=== PATIENT | female | born 1950 | race Caucasian/White ===

== ENCOUNTER 2017-07-05 04:03 | Emergency (ER) | payer MEDICARE, MEDICAID ==
[~2017-07-05] VITALS: Ht 165.1 cm; Wt 90.4 kg
[2017-07-05 04:53] VITALS: BP 122/64
[2017-07-05] MEDS ORDERED: HYDROcodone/APAP 5/325 TABLET ONE (05:09)
[2017-07-05] MEDS ORDERED: HYDROcodone/APAP 5/325 TABLET PO ONE (05:30)
== END 2017-07-05 05:31 | disposition home or self-care (01) ==
LOC: ED 05:25
DX: Z76.0 Encounter for issue of repeat prescription (principal); K04.7 Periapical abscess without sinus
CPT/HCPCS: 99283

== ENCOUNTER 2018-05-09 15:58 | Emergency (ER) | payer MEDICARE, MEDICAID ==
[~2018-05-09] VITALS: Ht 165.1 cm; Wt 90.9 kg
[2018-05-09] MEDS ORDERED: SODIUM CHLORIDE FLUSH 10ML SYR IVF ONE ×2 (17:00→19:00)
[2018-05-09 17:27] LABS: CULTURE INDICATED? YES; MICROSCOPIC INDICATED
[2018-05-09 17:48] LABS: BASOPHILS # (AUTO) 0.02 x10^3/uL (0-0.1); BASOPHILS % (AUTO) 0 % (0-1); EOSINOPHILS # (AUTO) 0.16 x10^3/uL (0-0.4); EOSINOPHILS % (AUTO) 2 % (1-7); LYMPHOCYTES # (AUTO) 2.15 x10^3/uL (1-3.4); LYMPHOCYTES % (AUTO) 21 % (22-44); MD NO; MEAN CORPUSCULAR HEMOGLOBIN 30.5 pg (27.0-34.8); MEAN CORPUSCULAR HGB CONC 33.5 g/dL (32.4-35.8); MEAN CORPUSCULAR VOLUME 91.2 fL (80-100); MEAN PLATELET VOLUME 8.6 fL (7.4-10.4); MONOCYTES # (AUTO) 0.56 x10^3/uL (0.2-0.8); MONOCYTES % (AUTO) 6 % (2-9); NEUTROPHILS # (AUTO) 7.27 x10^3/uL (1.8-6.8); NEUTROPHILS % (AUTO) 72 % (42-75); PLATELET COUNT 373 x10^3/uL (130-400); RED BLOOD COUNT 4.98 x10^6/uL (3.82-5.3); RED CELL DISTRIBUTION WIDTH 13.6 % (9.6-15.2)
[2018-05-09 17:59] LABS: ALANINE AMINOTRANSFERASE 27 U/L (12-78); ALBUMIN 3.9 g/dL (3.4-5.0); ANION GAP 5 mmol/L (5-15); CALCIUM 9.2 mg/dL (8.5-10.1); CHLORIDE 105 mmol/L (98-107); CREATININE 0.96 mg/dL (0.55-1.02)
[2018-05-09 18:07] LABS: ALKALINE PHOSPHATASE 94 U/L (45-117); BILIRUBIN,TOTAL 0.3 mg/dL (0.2-1.0); TOTAL PROTEIN 7.9 g/dL (6.4-8.2)
[2018-05-09] MEDS ORDERED: OMNIPAQUE 350 MG/ML, 100ML BOTTLE ONE (19:00)
[2018-05-09] MEDS ORDERED: CEFDINIR 300 MG CAPSULE PO ONE (19:00)
[2018-05-09] MEDS ORDERED: CEFDINIR 300 MG CAPSULE ONE (19:36)
[2018-05-09 20:13] VITALS: BP 151/70
== END 2018-05-09 20:59 | disposition home or self-care (01) ==
LOC: ED 20:12
DX: R60.0 Localized edema (principal); R33.9 Retention of urine, unspecified
CPT/HCPCS: 36415; 51702; 71046; 74177; 80053; 81001; 83880; 85025; 87086; 93005; 93970; 99285; Q9967

== ENCOUNTER 2018-05-11 18:53 | Emergency (ER) | payer MEDICARE, MEDICAID ==
[~2018-05-11] VITALS: Ht 152.4 cm; Wt 89.1 kg
[2018-05-11 19:24] VITALS: BP 148/80
== END 2018-05-11 20:28 | disposition home or self-care (01) ==
LOC: ED 19:44
DX: R31.0 Gross hematuria (principal); Z88.0 Allergy status to penicillin
CPT/HCPCS: 99281; 99284

== ENCOUNTER 2018-05-13 17:30 | Emergency (ER) | payer MEDICARE, MEDICAID ==
[~2018-05-13] VITALS: Ht 165.1 cm; Wt 92.5 kg
[2018-05-13 17:41] VITALS: BP 142/84
== END 2018-05-13 20:10 | disposition home or self-care (01) ==
LOC: ED 19:45
DX: R60.0 Localized edema (principal); F41.1 Generalized anxiety disorder; R33.9 Retention of urine, unspecified; R31.0 Gross hematuria; Z90.710 Acquired absence of both cervix and uterus; Z88.0 Allergy status to penicillin; Z88.1 Allergy status to other antibiotic agents; Z88.5 Allergy status to narcotic agent
CPT/HCPCS: 99283

== ENCOUNTER → 2019-03-18 | Outpatient (CLI) | payer MEDICARE, MEDICAID | END | disposition home or self-care (01) | LOC: RAD 16:46 | PROVIDERS: ATTEND Family Medicine | DX: M17.11 Unilateral primary osteoarthritis, right knee (principal); M16.11 Unilateral primary osteoarthritis, right hip ==

== ENCOUNTER 2019-05-15 16:17 | Inpatient (IN) | payer MEDICARE, MEDICAID ==
[~2019-05-15] VITALS: Ht 165.1 cm; Wt 91.0 kg
[2019-05-15] MEDS ORDERED: SODIUM CHLORIDE FLUSH 10ML SYR IVF ONE (16:30)
--- NOTE | 2019-05-15 16:44 | NUR ---
HOME HEALTH AIDE CAREGIVER: PT TO ROOM FROM LOBBY, VIA W/C
[2019-05-15 16:49] LABS: BASOPHILS # (AUTO) 0.01 x10^3/uL (0-0.1); BASOPHILS % (AUTO) 0 % (0-1); EOSINOPHILS # (AUTO) 0.01 x10^3/uL (0-0.4); EOSINOPHILS % (AUTO) 0 % (1-7); LYMPHOCYTES # (AUTO) 0.74 x10^3/uL (1-3.4); LYMPHOCYTES % (AUTO) 6 % (22-44); MD NO; MEAN CORPUSCULAR HEMOGLOBIN 31.3 pg (27.0-34.8); MEAN CORPUSCULAR HGB CONC 34.1 g/dL (32.4-35.8); MEAN CORPUSCULAR VOLUME 91.9 fL (80-100); MEAN PLATELET VOLUME 9.4 fL (7.4-10.4); MONOCYTES # (AUTO) 0.63 x10^3/uL (0.2-0.8); MONOCYTES % (AUTO) 5 % (2-9); NEUTROPHILS # (AUTO) 11.54 x10^3/uL (1.8-6.8); NEUTROPHILS % (AUTO) 89 % (42-75); PLATELET COUNT 250 x10^3/uL (130-400); RED BLOOD COUNT 4.83 x10^6/uL (3.82-5.3); RED CELL DISTRIBUTION WIDTH 13.5 % (9.6-15.2)
[2019-05-15 16:56] LABS: ALANINE AMINOTRANSFERASE 35 U/L (12-78); ANION GAP 4 mmol/L (5-15); CALCIUM 9.3 mg/dL (8.5-10.1); CHLORIDE 104 mmol/L (98-107)
[2019-05-15 16:58] LABS: ALKALINE PHOSPHATASE 75 U/L (45-117); BILIRUBIN,TOTAL 0.8 mg/dL (0.2-1.0); CREATININE 0.86 mg/dL (0.55-1.02); TOTAL PROTEIN 7.5 g/dL (6.4-8.2)
[2019-05-15] MEDS ORDERED: ALBU0.63 NEB (17:01)
[2019-05-15 17:17] LABS: CULTURE INDICATED? YES; MICROSCOPIC INDICATED
--- NOTE | 2019-05-15 17:28 | NUR ---
us at bedside
--- NOTE | 2019-05-15 18:36 | NUR ---
PT RESTING IN [facility], CALL JACLYN WITHIN REACH
--- NOTE | 2019-05-15 19:08 | NUR ---
PT TO BE ADMITTED, AWAITING BED ASSIGNMENT. ADMITTING MD AT BEDSIDE. IV ESTABLISHED.
[2019-05-15] MEDS ORDERED: ONDANSETRON 2MG/ML, 2ML IVPush PRN (19:30)
[2019-05-15] MEDS ORDERED: LEVOFLOXACIN/PMX 750MG/150ML 150 ML IV SCH (19:30)
[2019-05-15] MEDS ORDERED: hydrALAzine 20 MG/ML, 1ML IVPush PRN (19:30)
--- NOTE | 2019-05-15 19:32 | NUR ---
REPORT TO PARKER MEDRANO
[2019-05-15 19:37] LABS: INTERNATIONAL NORMALIZED RATIO 1.09 (0.93-1.1); PROTHROMBIN TIME 11.4 Seconds (9.6-11.5)
[2019-05-15 20:40] VITALS: BP 142/64
[2019-05-15] MEDS: FAMOTIDINE 20 MG/2 ML IVPush SCH (20:58)
[2019-05-15] MEDS: SODIUM CHLORIDE 0.9% 1,000 ML IV SCH (20:58)
[2019-05-15 21:08] VITALS: BP 142/59
[2019-05-15] MEDS: METRONIDAZOLE PMX 500MG/100ML 100 ML IV SCH (21:36)
[2019-05-16 03:59] VITALS: BP 128/81
[2019-05-16] MEDS ORDERED: ALBUTEROL SULFATE 2.5 MG/3 ML NPPB PRN ×2 (05:30→08:00)
[2019-05-16] MEDS ORDERED: BUPIVACAINE/EPI 0.5% 1:200K ONE (05:38)
[2019-05-16] MEDS: METRONIDAZOLE PMX 500MG/100ML 100 ML IV SCH (06:04)
[2019-05-16] MEDS ORDERED: FENTANYL PF 250 MCG/5ML ONE (06:32)
[2019-05-16] MEDS ORDERED: MIDAZOLAM 1 MG/ML, 2ML ONE (06:32)
[2019-05-16] MEDS ORDERED: CLINDAMYCIN 150 MG/ML, 6ML ONE (06:42)
[2019-05-16 06:48] LABS: BASOPHILS # (AUTO) 0.03 x10^3/uL (0-0.1); BASOPHILS % (AUTO) 0 % (0-1); EOSINOPHILS # (AUTO) 0.01 x10^3/uL (0-0.4); EOSINOPHILS % (AUTO) 0 % (1-7); LYMPHOCYTES # (AUTO) 0.98 x10^3/uL (1-3.4); LYMPHOCYTES % (AUTO) 8 % (22-44); MD NO; MEAN CORPUSCULAR HEMOGLOBIN 30.5 pg (27.0-34.8); MEAN CORPUSCULAR HGB CONC 33.4 g/dL (32.4-35.8); MEAN CORPUSCULAR VOLUME 91.3 fL (80-100); MEAN PLATELET VOLUME 9.2 fL (7.4-10.4); MONOCYTES # (AUTO) 0.99 x10^3/uL (0.2-0.8); MONOCYTES % (AUTO) 8 % (2-9); NEUTROPHILS # (AUTO) 10.29 x10^3/uL (1.8-6.8); NEUTROPHILS % (AUTO) 84 % (42-75); PLATELET COUNT 177 x10^3/uL (130-400); RED BLOOD COUNT 4.75 x10^6/uL (3.82-5.3); RED CELL DISTRIBUTION WIDTH 13.5 % (9.6-15.2)
[2019-05-16] MEDS ORDERED: PROPOFOL 10 MG/ML, 20ML ONE (06:50)
[2019-05-16] MEDS ORDERED: MIDAZOLAM 1 MG/ML, 5ML ONE (06:50)
[2019-05-16] MEDS ORDERED: CLINDAMYCIN PMX 900MG/50ML ONE (06:50)
[2019-05-16] MEDS ORDERED: SUCCINYLCHOLINE 20 MG/ML, 10ML ONE (06:50)
[2019-05-16] MEDS ORDERED: ONDANSETRON 2MG/ML, 2ML ONE (06:50)
[2019-05-16] MEDS ORDERED: ROCURONIUM 10MG/ML,5ML ONE (06:50)
[2019-05-16] MEDS ORDERED: DEXAMETHASONE 4 MG/ML, 1ML ONE (06:50)
[2019-05-16] MEDS ORDERED: FENTANYL PF 100 MCG/2ML ONE ×2 (06:50→08:14)
[2019-05-16 06:59] LABS: ALBUMIN 3.4 g/dL (3.4-5.0); ANION GAP 9 mmol/L (5-15); CALCIUM 8.9 mg/dL (8.5-10.1); CHLORIDE 105 mmol/L (98-107)
[2019-05-16 07:02] LABS: ALANINE AMINOTRANSFERASE 36 U/L (12-78); ALKALINE PHOSPHATASE 77 U/L (45-117); BILIRUBIN,TOTAL 1.3 mg/dL (0.2-1.0); CREATININE 0.94 mg/dL (0.55-1.02); TOTAL PROTEIN 7.1 g/dL (6.4-8.2)
[2019-05-16] MEDS ORDERED: MEPERIDINE/PF 25MG/0.5ML IVPush PRN (08:00)
[2019-05-16] MEDS ORDERED: PROMETHAZINE 25 MG/ML, 1ML IV PRN (08:00)
[2019-05-16] MEDS ORDERED: HYDROmorphone 1 MG/ML, 1ML INJ IV PRN (08:00)
[2019-05-16] MEDS ORDERED: OXYcodone 5 MG/5 ML ORAL.SOL UDC PO PRN (08:00)
[2019-05-16] MEDS ORDERED: LABETALOL 5MG/ML, 20ML IV PRN (08:00)
[2019-05-16] MEDS ORDERED: METOCLOPRAMIDE 5 MG/ML, 2ML IV PRN (08:00)
[2019-05-16] MEDS ORDERED: ONDANSETRON 2MG/ML, 2ML IVPush PRN (08:00)
[2019-05-16] MEDS ORDERED: KETOROLAC 30 MG/1 ML IV PRN (08:00)
[2019-05-16] MEDS ORDERED: FENTANYL PF 100 MCG/2ML IV PRN (08:00)
[2019-05-16] MEDS ORDERED: hydrALAzine 20 MG/ML, 1ML IV PRN (08:00)
[2019-05-16] MEDS ORDERED: OXYcodone 5 MG/5 ML ORAL.SOL UDC ONE (08:14)
[2019-05-16 09:05] VITALS: BP 141/64
[2019-05-16] MEDS: FAMOTIDINE 20 MG/2 ML IVPush SCH ×2 (09:06→20:24)
[2019-05-16] MEDS: SODIUM CHLORIDE 0.9% 1,000 ML IV SCH (09:06)
[2019-05-16] MEDS: LEVOFLOXACIN/PMX 750MG/150ML 150 ML IV SCH (09:07)
[2019-05-16] MEDS ORDERED: HYDROcodone/APAP 5/325 TABLET PO PRN (10:00)
[2019-05-16 14:56] VITALS: BP 130/66
[2019-05-16 19:08] VITALS: BP 137/86
[2019-05-17] MEDS: OXYcodone IR 5MG TABLET PO PRN ×4 (00:09→12:06)
[2019-05-17] MEDS: SODIUM CHLORIDE 0.9% 1,000 ML IV SCH ×2 (00:09→11:11)
[2019-05-17 00:45] VITALS: BP 141/79
[2019-05-17 03:49] VITALS: BP 136/76
[2019-05-17 05:35] LABS: MEAN CORPUSCULAR HEMOGLOBIN 30.6 pg (27.0-34.8); MEAN CORPUSCULAR HGB CONC 33.2 g/dL (32.4-35.8); MEAN CORPUSCULAR VOLUME 92.3 fL (80-100); MEAN PLATELET VOLUME 9.8 fL (7.4-10.4); PLATELET COUNT 173 x10^3/uL (130-400); RED BLOOD COUNT 4.26 x10^6/uL (3.82-5.3); RED CELL DISTRIBUTION WIDTH 13.1 % (9.6-15.2)
[2019-05-17 05:39] LABS: ALANINE AMINOTRANSFERASE 83 U/L (12-78); ALBUMIN 2.9 g/dL (3.4-5.0); ANION GAP 4 mmol/L (5-15); CALCIUM 8.5 mg/dL (8.5-10.1); CHLORIDE 105 mmol/L (98-107); CREATININE 0.66 mg/dL (0.55-1.02)
[2019-05-17 05:41] LABS: ALKALINE PHOSPHATASE 69 U/L (45-117); BILIRUBIN,TOTAL 0.8 mg/dL (0.2-1.0); TOTAL PROTEIN 6.1 g/dL (6.4-8.2)
[2019-05-17 06:07] LABS: BASOPHILS # (AUTO) 0.03 x10^3/uL (0-0.1); BASOPHILS % (AUTO) 0 % (0-1); EOSINOPHILS % (AUTO) 0 % (1-7); LYMPHOCYTES # (AUTO) 0.52 x10^3/uL (1-3.4); LYMPHOCYTES % (AUTO) 3 % (22-44); MD SCAN; MONOCYTES # (AUTO) 1.02 x10^3/uL (0.2-0.8); MONOCYTES % (AUTO) 6 % (2-9); NEUTROPHILS # (AUTO) 14.54 x10^3/uL (1.8-6.8); NEUTROPHILS % (AUTO) 90 % (42-75)
[2019-05-17] MEDS: FAMOTIDINE 20 MG/2 ML IVPush SCH (07:42)
[2019-05-17] MEDS: LEVOFLOXACIN/PMX 750MG/150ML 150 ML IV SCH (07:43)
[2019-05-17 08:43] VITALS: BP 130/73
[2019-05-17] MEDS ORDERED: METR500T PO (11:54)
[2019-05-17] MEDS ORDERED: CIPR500T87 PO (11:54)
[2019-05-17 13:05] VITALS: BP 108/55
[2019-05-17] MEDS ORDERED: OXYC-302 PO (14:40)
== END 2019-05-17 15:15 | disposition home health service (06) | DRG 417 ==
LOC: ED 18:00 → EDIP 19:13 → 4NOR 20:15
PROVIDERS: ADMIT Family Medicine; ATTEND Family Medicine
PROC: 0FT44ZZ Resection of Gallbladder, Percutaneous Endoscopic Approach (ICD-10-PCS; principal; 2019-05-16 07:00)
DX: K80.12 Calculus of gallbladder with acute and chronic cholecystitis without obstruction (principal); R65.11 Systemic inflammatory response syndrome (SIRS) of non-infectious origin with acute organ dysfunction; F41.1 Generalized anxiety disorder; J45.909 Unspecified asthma, uncomplicated; E86.0 Dehydration; M19.90 Unspecified osteoarthritis, unspecified site; Z90.710 Acquired absence of both cervix and uterus; Z88.8 Allergy status to other drugs, medicaments and biological substances; Z88.5 Allergy status to narcotic agent; Z88.0 Allergy status to penicillin; Z91.040 Latex allergy status
CPT/HCPCS: 36415; 71045; 74021; 76700; 80053; 81001; 83605; 83690; 83735; 84100; 85025; 85610; 87040; 87086; 88304; 93005; 94640; G0378; J1100; J1956; J2250; J2405; J2704; J3010; C1760; J0330; J3490; J7030

== ENCOUNTER 2019-05-23 06:49 | Observation (INO) | payer MEDICARE, MEDICAID ==
[~2019-05-23] VITALS: Ht 165.1 cm; Wt 82.0 kg
[~2019-05-23 06:49] MED LIST: ALBU0.63 NEB; CIPR500T87 PO; METR500T PO; OXYC-302 PO
[2019-05-23] MEDS ORDERED: SODIUM CHLORIDE FLUSH 10ML SYR IVF ONE (07:30)
--- NOTE | 2019-05-23 08:01 | NUR ---
CT WAITING ON LAB RESULTS TO PERFORM EXAM.
[2019-05-23 08:14] LABS: BASOPHILS % (AUTO) 0 % (0-1); EOSINOPHILS # (AUTO) 0.14 x10^3/uL (0-0.4); EOSINOPHILS % (AUTO) 2 % (1-7); LYMPHOCYTES # (AUTO) 1.28 x10^3/uL (1-3.4); LYMPHOCYTES % (AUTO) 16 % (22-44); MD NO; MEAN CORPUSCULAR HEMOGLOBIN 29.8 pg (27.0-34.8); MEAN CORPUSCULAR HGB CONC 32.8 g/dL (32.4-35.8); MEAN CORPUSCULAR VOLUME 90.9 fL (80-100); MEAN PLATELET VOLUME 8.5 fL (7.4-10.4); MONOCYTES # (AUTO) 0.29 x10^3/uL (0.2-0.8); MONOCYTES % (AUTO) 4 % (2-9); NEUTROPHILS # (AUTO) 6.17 x10^3/uL (1.8-6.8); NEUTROPHILS % (AUTO) 78 % (42-75); PLATELET COUNT 279 x10^3/uL (130-400); RED CELL DISTRIBUTION WIDTH 13.3 % (9.6-15.2)
[2019-05-23 08:17] LABS: CHLORIDE 105 mmol/L (98-107)
--- NOTE | 2019-05-23 08:17 | NUR ---
jose rn: pt up to bedside commode to provide UA
[2019-05-23 08:21] LABS: ALBUMIN 3.2 g/dL (3.4-5.0); ANION GAP 7 mmol/L (5-15); CALCIUM 8.8 mg/dL (8.5-10.1)
[2019-05-23 08:27] LABS: ALANINE AMINOTRANSFERASE 42 U/L (12-78); ALKALINE PHOSPHATASE 77 U/L (45-117); BILIRUBIN,TOTAL 0.5 mg/dL (0.2-1.0); CREATININE 0.76 mg/dL (0.55-1.02); TOTAL PROTEIN 6.5 g/dL (6.4-8.2); TROPONIN I < 0.015 ng/mL (0.000-0.045)
[2019-05-23 08:50] LABS: MICROSCOPIC AUTO
[2019-05-23 08:56] LABS: CULTURE INDICATED? YES
[2019-05-23] MEDS ORDERED: OMNIPAQUE 350 MG/ML, 100ML BOTTLE ONE (09:17)
[2019-05-23] MEDS ORDERED: ENALAPRILAT 1.25 MG/ML, 2ML IVPush PRN (11:30)
[2019-05-23] MEDS ORDERED: ALBUTEROL SULFATE 2.5 MG/3 ML NEB PRN (11:30)
[2019-05-23] MEDS ORDERED: ONDANSETRON ODT 4 MG PO PRN (11:30)
[2019-05-23] MEDS ORDERED: LABETALOL 5MG/ML, 20ML IVPush PRN (11:30)
[2019-05-23] MEDS ORDERED: ONDANSETRON 2MG/ML, 2ML IVPush PRN (11:30)
[2019-05-23] MEDS ORDERED: POLYETHYLENE GLYCOL 17 GM PACKET PO PRN (11:30)
[2019-05-23] MEDS ORDERED: ACETAMINOPHEN 325 MG TABLET PO PRN (11:30)
[2019-05-23] MEDS ORDERED: BISACODYL 10 MG SUPP PR PRN (11:30)
[2019-05-23] MEDS ORDERED: FUROSEMIDE 40 MG/4 ML IV ONE (12:00)
[2019-05-23] MEDS ORDERED: POTASSIUM CHLORIDE 20 MEQ TAB.ER.PRT PO ONE (12:00)
[2019-05-23 13:29] LABS: THYROID STIMULATING HORMONE 1.03 mIU/L (0.358-3.740)
[2019-05-23 15:07] VITALS: BP 125/77
[2019-05-23] MEDS: ENOXAPARIN 40 MG/0.4 ML SQ SCH (15:07)
[2019-05-23 19:03] VITALS: BP 130/74
[2019-05-24 00:59] VITALS: BP 132/80
[2019-05-24 07:30] VITALS: BP_SYST 133; BP_SYST 137; BP_DIAS 77; BP_DIAS 80; BP_DIAS 85
[2019-05-24 09:17] LABS: BASOPHILS # (AUTO) 0.03 x10^3/uL (0-0.1); BASOPHILS % (AUTO) 0 % (0-1); EOSINOPHILS # (AUTO) 0.15 x10^3/uL (0-0.4); EOSINOPHILS % (AUTO) 2 % (1-7); LYMPHOCYTES # (AUTO) 1.36 x10^3/uL (1-3.4); LYMPHOCYTES % (AUTO) 20 % (22-44); MD NO; MEAN CORPUSCULAR HEMOGLOBIN 29.9 pg (27.0-34.8); MEAN CORPUSCULAR HGB CONC 32.8 g/dL (32.4-35.8); MEAN CORPUSCULAR VOLUME 91.2 fL (80-100); MONOCYTES # (AUTO) 0.61 x10^3/uL (0.2-0.8); MONOCYTES % (AUTO) 9 % (2-9); NEUTROPHILS # (AUTO) 4.64 x10^3/uL (1.8-6.8); NEUTROPHILS % (AUTO) 68 % (42-75); PLATELET COUNT 265 x10^3/uL (130-400); RED BLOOD COUNT 4.57 x10^6/uL (3.82-5.3); RED CELL DISTRIBUTION WIDTH 13.6 % (9.6-15.2)
[2019-05-24 09:28] LABS: ALBUMIN 3.1 g/dL (3.4-5.0); ANION GAP 7 mmol/L (5-15); CALCIUM 8.6 mg/dL (8.5-10.1); CHLORIDE 103 mmol/L (98-107)
[2019-05-24 09:31] LABS: ALANINE AMINOTRANSFERASE 39 U/L (12-78); ALKALINE PHOSPHATASE 74 U/L (45-117); BILIRUBIN,TOTAL 0.5 mg/dL (0.2-1.0); CREATININE 0.68 mg/dL (0.55-1.02); TOTAL PROTEIN 6.6 g/dL (6.4-8.2)
[2019-05-24 12:42] VITALS: BP 124/74
[2019-05-24] MEDS ORDERED: OMNIPAQUE 350 MG/ML, 100ML BOTTLE ONE (15:45)
[2019-05-24] MEDS: ENOXAPARIN 40 MG/0.4 ML SQ SCH (16:06)
[2019-05-24 19:35] VITALS: BP 140/80
[2019-05-24] MEDS: DOCUSATE 100 MG CAPSULE PO PRN (20:39)
[2019-05-25 03:57] VITALS: BP 139/82
[2019-05-25] MEDS: DOCUSATE 100 MG CAPSULE PO PRN (05:39)
[2019-05-25 08:05] VITALS: BP 164/99
[2019-05-25] MEDS ORDERED: FURO-93 PO (12:40)
[2019-05-25] MEDS ORDERED: DOCU-131 PO (12:40)
[2019-05-25 14:05] VITALS: BP 135/76
== END 2019-05-25 15:00 | disposition home or self-care (01) ==
LOC: ED 07:23 → INTOOBSV 10:22 → EDIP 10:22 → 4WST 10:56 → OBSVTOIN 05-24 18:46 → INTOOBSV 05-24 18:46 → DCLOUNGE 05-25 14:45
PROVIDERS: ADMIT Internal Medicine; ATTEND Internal Medicine
DX: R42 Dizziness and giddiness (principal); R60.0 Localized edema; R55 Syncope and collapse; K80.20 Calculus of gallbladder without cholecystitis without obstruction; E87.6 Hypokalemia; I10 Essential (primary) hypertension; J45.909 Unspecified asthma, uncomplicated; E44.0 Moderate protein-calorie malnutrition; Z87.891 Personal history of nicotine dependence; Z90.49 Acquired absence of other specified parts of digestive tract; Z90.710 Acquired absence of both cervix and uterus; Z88.0 Allergy status to penicillin; Z88.5 Allergy status to narcotic agent; Z88.1 Allergy status to other antibiotic agents; Z91.040 Latex allergy status; Z79.899 Other long term (current) drug therapy; Z68.30 Body mass index [BMI] 30.0-30.9, adult
CPT/HCPCS: 36415; 71045; 71275; 74177; 80053; 81001; 83735; 83880; 84100; 84145; 84443; 84484; 85025; 87086; 93005; 93306; 93880; 93970; 96372; 96374; 97162; 97165; 97530; 97535; 99285; G0378; J1650; J1940; Q9967

== ENCOUNTER 2019-09-14 13:19 | Outpatient (CLI) | payer MEDICARE, MEDICAID ==
[~2019-09-14 13:19] MED LIST changes: +DOCU-131 PO; +FURO-93 PO
== END 2019-09-14 23:59 | disposition home or self-care (01) ==
LOC: CFH 13:19
PROVIDERS: ATTEND Family Medicine
DX: M70.41 Prepatellar bursitis, right knee (principal)

== ENCOUNTER 2020-03-23 17:44 | Emergency (ER) | payer MEDICARE, MEDICAID ==
[~2020-03-23] VITALS: Ht 165.1 cm; Wt 85.0 kg
--- NOTE | 2020-03-23 18:19 | NUR ---
PT CAME IN CO OF "BEING TIRED AND I WANT A CT ON MY CHEST TO MAKE SURE IM CLEAR OF PNEUMONIA". WAS TREATED FOR PNEUMONIA A FEW WEEKS AGO AND WAS SWABBED FOR COVID WHICH WAS NEGATIVE. PT IS RESTING IN [facility] CONNECTED TO [facility] [employer].
--- NOTE | 2020-03-23 18:56 | NUR ---
REPORT FROM PORSCHE MEDRANO.
[2020-03-23 19:51] VITALS: BP 152/56
--- NOTE | 2020-03-23 19:54 | NUR ---
PT RESTING ON [facility] NO ACUTE DISTRESS NOTED, RESPIRATIONS EVEN AND UNLABORED. VSS.
[2020-03-23 20:33] LABS: BASOPHILS # (AUTO) 0.03 x10^3/uL (0-0.1); BASOPHILS % (AUTO) 0 % (0-1); EOSINOPHILS # (AUTO) 0.12 x10^3/uL (0-0.4); EOSINOPHILS % (AUTO) 2 % (1-7); LYMPHOCYTES % (AUTO) 28 % (22-44); MD NO; MEAN CORPUSCULAR HEMOGLOBIN 30.4 pg (27.0-34.8); MEAN CORPUSCULAR HGB CONC 33.3 g/dL (32.4-35.8); MEAN CORPUSCULAR VOLUME 91.2 fL (80-100); MEAN PLATELET VOLUME 9.4 fL (7.4-10.4); MONOCYTES # (AUTO) 0.49 x10^3/uL (0.2-0.8); MONOCYTES % (AUTO) 7 % (2-9); NEUTROPHILS # (AUTO) 4.59 x10^3/uL (1.8-6.8); NEUTROPHILS % (AUTO) 64 % (42-75); PLATELET COUNT 238 x10^3/uL (130-400); RED BLOOD COUNT 4.58 x10^6/uL (3.82-5.3)
[2020-03-23 20:42] LABS: ALANINE AMINOTRANSFERASE 20 U/L (12-78); ALBUMIN 3.6 g/dL (3.4-5.0); ANION GAP 6 mmol/L (5-15); CALCIUM 9.1 mg/dL (8.5-10.1); CHLORIDE 109 mmol/L (98-107); CREATININE 0.81 mg/dL (0.55-1.02)
[2020-03-23 20:46] LABS: ALKALINE PHOSPHATASE 73 U/L (45-117); BILIRUBIN,TOTAL 0.4 mg/dL (0.2-1.0); TOTAL PROTEIN 6.9 g/dL (6.4-8.2)
== END 2020-03-23 21:13 | disposition home or self-care (01) ==
LOC: ED 18:54
DX: B34.9 Viral infection, unspecified (principal); R60.0 Localized edema; M79.10 Myalgia, unspecified site; R53.83 Other fatigue; J45.909 Unspecified asthma, uncomplicated; Z90.49 Acquired absence of other specified parts of digestive tract; Z90.710 Acquired absence of both cervix and uterus
CPT/HCPCS: 36415; 71045; 80053; 83880; 85025; 99284